=== PATIENT | female | born 2000 | race Caucasian/White ===

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

== ENCOUNTER → 2022-03-20 | Outpatient (CLI) | payer BC ==
--- NOTE | 2022-03-20 16:33 | XR ---
EXAMINATION TYPE: XR chest 2V DATE OF EXAM: 03/20/2022 COMPARISON: NONE HISTORY: Cough, congestion, and shortness of breath TECHNIQUE: Frontal and lateral views of the chest are obtained. FINDINGS: There is some silhouetting of right hemidiaphragm anterior aspect of patchy opacity. No pl eural effusion or pneumothorax seen bilaterally. Focal left basilar opacity just above the diaphragm adjacent to inferior heart border on frontal view less well seen on lateral view. The cardiac silhoue tte size is within normal limits. Slight underlying scoliotic curvature and/or positioning. IMPRESSION: Patchy bilateral lower lung acute infiltrates and/or atelectasis.
== END | disposition home or self-care (01) ==
LOC: RADXRMAIN 16:13
PROVIDERS: ATTEND Family Medicine
DX: R91.8 Other nonspecific abnormal finding of lung field (principal)
CPT/HCPCS: 71046

== ENCOUNTER → 2022-04-08 | Outpatient (CLI) | payer BC ==
--- NOTE | 2022-04-08 16:53 | XR ---
EXAMINATION TYPE: XR chest 2V DATE OF EXAM: 04/08/2022 COMPARISON: 03/21/2022 HISTORY: Pneumonia. TECHNIQUE: 2 views FINDINGS: Heart and mediastinum are normal. There is a mild infiltrate left lower lobe posteriorly. T he lung lucas are clear. There are no hilar masses. Bony thorax is intact. IMPRESSION: Left lower lobe pneumonia with partial clearing compared to old exam.
== END | disposition home or self-care (01) ==
LOC: RADXRMAIN 16:23
PROVIDERS: ATTEND Nurse Practitioner Family
DX: J18.9 Pneumonia, unspecified organism (principal)
CPT/HCPCS: 71046